=== PATIENT | female | born 1950 | race Caucasian/White ===

== ENCOUNTER 2025-05-17 05:12 | Day surgery (SDC) | payer OTHER, MEDICARE ==
[~2025-05-17] VITALS: Ht 160 cm; Wt 54.9 kg
[2025-05-17] MEDS ORDERED: RINGERS SOLUTION,LACTATED 1,000 ML IV ONE ×2 (06:46→07:00)
[2025-05-17 07:08] LABS: PLATELET COUNT (AUTO) 229 K/uL (150-450); RED BLOOD CELL COUNT(AUTO) 5.15 MIL/uL (4.00-5.20); RED CELL DISTRIBUTION WIDTH 15.1 % (11.5-14.5); WHITE BLOOD COUNT (AUTO) 10.4 K/uL (4.5-11.0)
[2025-05-17 07:25] LABS: CALCIUM, TOTAL 9.7 mg/dL (8.8-10.5); CREATININE 0.90 mg/dL (0.60-1.30); GLOMERULAR FILTR. RATE CALC > 60 mL/min (>60); GLUCOSE,RANDOM 129 mg/dL (70-110); SODIUM SERUM 141 mmol/L (136-145); UREA NITROGEN, BLOOD 18 mg/dL (7-18)
[2025-05-17 07:30] LABS: ASPARTATE AMINOTRANSFERASE 14 U/L (15-37); TOTAL PROTEIN, SERUM 8.4 g/dL (6.4-8.2)
[2025-05-17] MEDS ORDERED: ARIP20TA PO (07:58)
[2025-05-17] MEDS ORDERED: CALC1CAP22 PO (07:58)
[2025-05-17] MEDS ORDERED: DOCU-385 PO (07:58)
[2025-05-17] MEDS ORDERED: LUBI8CAP PO (07:58)
[2025-05-17] MEDS ORDERED: FERR325T27 PO (07:58)
[2025-05-17] MEDS ORDERED: ALEN70TA65 PO (07:58)
[2025-05-17] MEDS ORDERED: AMPICILLIN SODIUM 2 GM/NS 100 ML IV ONE (08:17)
[2025-05-17] MEDS ORDERED: DEXAMETHASONE SOD PHOS 4 MG/ML VIAL ONE (10:06)
[2025-05-17] MEDS ORDERED: ROCURONIUM BROMIDE 10 MG/ML 5 ML VIAL ONE (10:06)
[2025-05-17] MEDS ORDERED: LIDOCAINE/PF 2% 5 ML VIAL ONE (10:06)
[2025-05-17] MEDS ORDERED: SUGAMMADEX SODIUM 200 MG/2 ML VIAL IVP ONE (10:06)
[2025-05-17] MEDS ORDERED: ONDANSETRON HCL 4 MG/2 ML VIAL ONE (10:06)
[2025-05-17] MEDS ORDERED: PROPOFOL 1% 20 ML VIAL IVP ONE (10:06)
== END 2025-05-17 12:55 | disposition home or self-care (01) ==
LOC: SURGERY 05:12
PROVIDERS: ATTEND Dentist General Practice
DX: K05.30 Chronic periodontitis, unspecified (principal); K02.9 Dental caries, unspecified; E03.9 Hypothyroidism, unspecified; F20.9 Schizophrenia, unspecified; F41.9 Anxiety disorder, unspecified; G40.909 Epilepsy, unspecified, not intractable, without status epilepticus; I10 Essential (primary) hypertension; Z88.8 Allergy status to other drugs, medicaments and biological substances
CPT/HCPCS: 41899; 71045; 80053; 85025; 85610; 85730; 36415; J0290; J2704; J1100; J3490 ×3; J2405; J7120